=== PATIENT | male | born 1960 | race Caucasian/White ===

== ENCOUNTER → 2023-06-10 09:07 | Outpatient (REF) | payer OTHER, SELFPAY | LOC: HWRAD 09:07 | PROVIDERS: ATTENDING PHYSICIAN Specialist; FAMILY PHYSICIAN Family Medicine | DX: N20.0 Calculus of kidney (principal) | CPT/HCPCS: 74018 ==

== ENCOUNTER 2023-08-18 11:58 | Emergency (ER) | payer SELFPAY ==
[2023-08-18 12:12] VITALS: BP 173/101
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
[2023-08-18 13:16] VITALS: BP 159/79
== END 2023-08-18 13:22 | disposition home or self-care (01) ==
LOC: EMR 11:58
PROVIDERS: EMERGENCY PHYSICIAN Emergency Medicine; FAMILY PHYSICIAN Family Medicine
DX: M54.50 Low back pain, unspecified (principal); V49.40XA Driver injured in collision with unspecified motor vehicles in traffic accident, initial encounter; I10 Essential (primary) hypertension; E78.00 Pure hypercholesterolemia, unspecified; E11.9 Type 2 diabetes mellitus without complications; Z87.442 Personal history of urinary calculi
CPT/HCPCS: 99283; 72110

== ENCOUNTER 2023-09-12 06:13 | Day surgery (SDC) | payer OTHER, MEDICARE, SELFPAY ==
[2023-09-04 06:40] VITALS: BMI 41.0
[2023-09-04 09:00] LABS: Hematocrit 49.6 % (39.0-52.0); Hemoglobin 16.8 g/dL (13.0-18.0); Mean Corp Hgb Conc. 33.9 g/dL (33.0-37.0); Mean Corpuscular Hgb 28.5 pg (27.0-31.0); Mean Corpuscular Volume 84.1 fL (80.0-94.0); Mean Platelet Volume 9.6 fL (7.4-10.4); Platelet Count 223 10^3/uL (130-400); Red Cell Dist. Width 13.6 % (11.5-14.5); Urine Albumin Trace (Neg - Trace); Urine Bilirubin Negative (Negative); Urine Character Clear (Clear); Urine Color Yellow; Urine Glucose Negative (Negative); Urine Ketone Negative (Negative); Urine Leukocyte Negative (Negative); Urine Nitrite Negative (Negative); Urine Occult Blood Negative (Negative); Urine Specific Gravity 1.015 (<1.030); Urine Urobilinogen Negative (Neg - 1+); White Blood Cell Count 6.1 10^3/uL (4.8-10.8)
[2023-09-04 09:13] LABS: INR 0.97; PT 12.7 Sec (11.4-14.6)
[2023-09-04 09:14] LABS: APTT 29.9 Sec (23.4-35.0)
[2023-09-04 09:23] LABS: Blood Urea Nitrogen 22 mg/dl (9-20); Calcium 9.2 mg/dl (8.4-10.2); Carbon Dioxide 28 mmol/L (22-30); Chloride 104 mmol/L (98-107); Estimated Creatinine Clearance 101 ml/min; Glucose 108 mg/dl (70-99); Potassium 4.6 mmol/L (3.5-5.1); Sodium 141 mmol/L (135-145); eGFR > 60.00
[2023-09-12] VITALS (9 sets, daily range): BP systolic 121–149; BP diastolic 76–90; BMI 41.0
[2023-09-12] MEDS: NORMOSOL-R 1000 IV (09:06)
[2023-09-12 09:09] LABS: Glucose - Point of Care 124 mg/dl (70-99)
[2023-09-12 10:51] LABS: Glucose - Point of Care 106 mg/dl (70-99)
== END 2023-09-12 12:12 | disposition home or self-care (01) ==
LOC: SDS 06:13
PROVIDERS: ATTENDING PHYSICIAN Specialist; FAMILY PHYSICIAN Family Medicine
DX: N20.0 Calculus of kidney (principal)
CPT/HCPCS: 52356; 36415; 74018; 76000; 80048; 81003; 82365; 82962; 85027; 85610; 85730; 93005; A4300; C1894; C2617

== ENCOUNTER → 2023-11-26 13:42 | Outpatient (REF) | payer OTHER, SELFPAY | LOC: HWRCS 13:42 | PROVIDERS: ATTENDING PHYSICIAN Physician Assistant Medical | DX: R07.89 Other chest pain (principal) | CPT/HCPCS: 93306 ==

== ENCOUNTER → 2023-12-06 07:30 | Outpatient (REF) | payer OTHER, SELFPAY | LOC: RCS 07:30 | PROVIDERS: ATTENDING PHYSICIAN Physician Assistant Medical | DX: R07.89 Other chest pain (principal); R06.09 Other forms of dyspnea; R42 Dizziness and giddiness; I10 Essential (primary) hypertension | CPT/HCPCS: 93017 ==

== ENCOUNTER 2024-10-03 05:00 | Inpatient (IN) | payer OTHER, SELFPAY ==
[2024-10-03 00:36] VITALS: BP 195/101
--- NOTE | 2024-10-03 01:02 | ED.GENMED ---
History of Present Illness
<Oracio Mora MD, Resident - Last Filed: 10/03/24 03:26>
General
Chief Complaint: Flank Pain
Source: patient
Exam Limitations: none
Time Seen by Provider: 10/03/24 00:54
History of Present Illness
History of Present Illness:
This is a 64-year-old male presented with right-sided flank pain. He has known past medical history of hypertension on amlodipine, diabetes on glipizide, hypercholesteremia, history of multiple renal stones; follows with Dr. Aceves, had right
ureteroscopy, laser lithotripsy of renal calculi, basket extraction largest fragment, right double-J stent placement on 09/12/2023.
Reports that pain is 8/10, started around 10 PM he tried to sleep however, pain increased in intensity which led to his visit to the emergency department. Denies any other symptoms including chest pain, trouble breathing, fever or chills. Denies
any recent changes in the medical history.
Past History
<Oracio Mora MD, Resident - Last Filed: 10/03/24 03:26>
Past History
ED Past Medical History: HTN, Hypercholesterolemia, NIDDM and Other (History of diverticulitis, history of kidney stones with stent)
ED Past Surgical History: Bowel resection (Removal of bowel for diverticulitis), Orthopedic and Urological (stents)
Social History
Tobacco: Non-smoker
Alcohol: Occasional
Drug: None
Personal:
Living: with family
Employment: Employed
Family History
Family History: Other (18-year-old daughter has had kidney stones)
Review of Systems
<Oracio Mora MD, Resident - Last Filed: 10/03/24 03:26>
Review of Systems
Allergies reviewed?: Yes
Constitutional: Reports no symptoms
EENT: Reports no symptoms
Respiratory: Reports no symptoms
Cardiac: Reports no symptoms
ABD/GI: Reports other (Right flank pain radiating to right groin)
: Reports no symptoms
Musculoskeletal: Reports no symptoms
Skin: Reports no symptoms
Neurological: Reports no symptoms
Endocrine: Reports no symptoms
Hematologic/Lymphatic: Reports no symptoms
Psychiatric: Reports no symptoms
Phy Exam
<Oracio Mora MD, Resident - Last Filed: 10/03/24 03:26>
General Physical Exam
General Presentation: mild distress
General age: appears stated age
General Skin: warm and dry
General Habitus: normal
General Mental: alert
General Hydration: appears well hydrated
Pulmonary Exam
Pulmonary Exam: no respiratory distress and chest non tender
Gastrointestinal Exam
Gastrointestinal Exam: non tender, soft, no organomegaly and other (no buising, no wounds)
Genitourinary Exam Male
Exam Male: no CVAT, no discharge, normal external genitalia, normal testicular exam, no testicular swelling and no testicular tenderness
Skin Exam
Skin Exam: normal color, warm/dry and no rash
Psychiatric Exam
Psychiatric Exam: normal mood/affect
Course
<Oracio Mora MD, Resident - Last Filed: 10/03/24 03:26>
Orders/Labs/Results
Orders:
Orders
10/03/24 01:00
CMP [Comprehensive Metabolic Panel] Urgent
Complete Blood Count/With Diff Urgent
Urinalysis Reflex To Culture Urgent
Date Specimen was Collected: 10/03/24
Time Specimen was Collected: 00:47
Urine Microscopic Reflex Cult Urgent
Urine Culture Urgent
GÓMEZ Source: U
Specimen Description:
Date Specimen was Collected: 10/03/24
Time Specimen was Collected: 00:47
10/03/24 01:18
Ketorolac [Toradol] 15 mg IV NOW STA
10/03/24 01:21
CT Abd/pel Without Iv Or Oral Urgent
Comment:
Reason For Exam: Flank pain. h/o renal stones
10/03/24 01:24
Ondansetron Injectable [Zofran] 4 mg IV NOW STA
10/03/24 01:53
HYDROmorphone [Dilaudid] 0.5 mg IV NOW STA
10/03/24 04:03
Admit/Transfer Patient As Directed
Co-Sign Provider:
Level of Care: Inpatient admission
Assign to:: Medical/Surgical
Physician / Group: Connor
Diagnosis: Ureterolithiasis
Reason for Hospitalization: Ureterolithiasis
Expected length of stay greater than two midnights?: Yes
ELOS- Estimated Length of Stay in days: 2
I certify the patient meets the requirements for IP care: Yes
PRN Pain Medication Management As Directed
May give lesser potent ordered pain med per pt: Yes
preference::
Protocol:: Medication orders for pain may be administered in a
manner that supports deferring to patient preference
when the pt is:
- Requesting an ordered lesser potent pain medication.
Least to most potent pain medications are defined
as: acetaminophen < NSAID < tramadol < opioids
(morphine, oxycodone, hydromorphone).
- Requesting a lesser dose of the same medication IF
ORDERED.
- Requesting a less intrusive route of administration
if both routes are prescribed by the provider (PO <
IV).
10/03/24 04:04
Code Status As Directed
Resuscitation Status: Full Code
Abnormal Lab Results
10/03/24
01:00
RBC 6.16 H 10^6/uL
(4.70-6.10)
Abs Immat Gran (auto) 0.1 H 10^3/uL
(0-0.05)
Absolute Neuts (auto) 7.0 H 10^3/uL
(1.4-6.5)
Absolute Monos (auto) 0.8 H 10^3/uL
(0.1-0.6)
Neutrophils % 75.4 H %
(42.2-75.2)
Lymphocytes % 13.2 L %
(20.5-51.1)
BUN 24 H mg/dl
(9-20)
Glucose 211 H mg/dl
(70-99)
Ur Occult Blood Reflex 4+ A
(Negative)
Urine Bacteria (Reflex) Many A
(Negative)
Urine Albumin (Reflex) 3+ A
(Neg - Trace)
10/03/24 01:00
10/03/24 01:00
Vital Signs
Initial and Last Documented VS:
Initial Vital Signs
Temp Pulse Resp BP Pulse Ox
98.4 F 86 16 195/101 96
10/03/24 00:36 10/03/24 00:36 10/03/24 00:36 10/03/24 00:36 10/03/24 00:36
Last Documented Vital Signs
Temp Pulse Resp BP Pulse Ox
98.4 F 85 16 127/80 95
10/03/24 00:36 10/03/24 03:53 10/03/24 03:53 10/03/24 03:53 10/03/24 03:53
<Ganesh Tejeda, DO - Last Filed: 10/03/24 04:07>
Orders/Labs/Results
Orders:
Orders
10/03/24 01:00
CMP [Comprehensive Metabolic Panel] Urgent
Complete Blood Count/With Diff Urgent
Urinalysis Reflex To Culture Urgent
Date Specimen was Collected: 10/03/24
Time Specimen was Collected: 00:47
Urine Microscopic Reflex Cult Urgent
Urine Culture Urgent
GÓMEZ Source: U
Specimen Description:
Date Specimen was Collected: 10/03/24
Time Specimen was Collected: 00:47
10/03/24 01:18
Ketorolac [Toradol] 15 mg IV NOW STA
10/03/24 01:21
CT Abd/pel Without Iv Or Oral Urgent
Comment:
Reason For Exam: Flank pain. h/o renal stones
10/03/24 01:24
Ondansetron Injectable [Zofran] 4 mg IV NOW STA
10/03/24 01:53
HYDROmorphone [Dilaudid] 0.5 mg IV NOW STA
10/03/24 04:03
Admit/Transfer Patient As Directed
Co-Sign Provider:
Level of Care: Inpatient admission
Assign to:: Medical/Surgical
Physician / Group: Connor
Diagnosis: Ureterolithiasis
Reason for Hospitalization: Ureterolithiasis
Expected length of stay greater than two midnights?: Yes
ELOS- Estimated Length of Stay in days: 2
I certify the patient meets the requirements for IP care: Yes
PRN Pain Medication Management As Directed
May give lesser potent ordered pain med per pt: Yes
preference::
Protocol:: Medication orders for pain may be administered in a
manner that supports deferring to patient preference
when the pt is:
- Requesting an ordered lesser potent pain medication.
Least to most potent pain medications are defined
as: acetaminophen < NSAID < tramadol < opioids
(morphine, oxycodone, hydromorphone).
- Requesting a lesser dose of the same medication IF
ORDERED.
- Requesting a less intrusive route of administration
if both routes are prescribed by the provider (PO <
IV).
10/03/24 04:04
Code Status As Directed
Resuscitation Status: Full Code
Abnormal Lab Results
10/03/24
01:00
RBC 6.16 H 10^6/uL
(4.70-6.10)
Abs Immat Gran (auto) 0.1 H 10^3/uL
(0-0.05)
Absolute Neuts (auto) 7.0 H 10^3/uL
(1.4-6.5)
Absolute Monos (auto) 0.8 H 10^3/uL
(0.1-0.6)
Neutrophils % 75.4 H %
(42.2-75.2)
Lymphocytes % 13.2 L %
(20.5-51.1)
BUN 24 H mg/dl
(9-20)
Glucose 211 H mg/dl
(70-99)
Ur Occult Blood Reflex 4+ A
(Negative)
Urine Bacteria (Reflex) Many A
(Negative)
Urine Albumin (Reflex) 3+ A
(Neg - Trace)
10/03/24 01:00
10/03/24 01:00
Vital Signs
Initial and Last Documented VS:
Initial Vital Signs
Temp Pulse Resp BP Pulse Ox
98.4 F 86 16 195/101 96
10/03/24 00:36 10/03/24 00:36 10/03/24 00:36 10/03/24 00:36 10/03/24 00:36
Last Documented Vital Signs
Temp Pulse Resp BP Pulse Ox
98.4 F 85 16 127/80 95
10/03/24 00:36 10/03/24 03:53 10/03/24 03:53 10/03/24 03:53 10/03/24 03:53
<Oracio Mora MD, Resident - Last Filed: 10/03/24 03:26>
MDM/Problems Addressed
Differential Diagnosis Includes:
Renal calculi vs UTI vs less likely pyelonephritis vs less likely biliary vs less likely diverticulitis vs less likely pancreatitis
MDM/Problems Addressed:
will get cbc, cmp, UA
Toradol for pain, zofran for nausea.
will check CT abd/pel w/o contrast.
update 1:54 patient continues to have some pain radiating towards testicles; will give 0.5mg dilaudid.
Update: Preliminary radiology report showed approximately 10 stones seen within the distal right ureter, largest of which measures 7 mm at the right UVJ, resulting in mild right hydroureter. Additional obstructing right nephrolithiasis. Normal
bowel obstruction. Normal gallbladder.
Will reach out to med on-call urologist for further recommendations.
update: Urology recommended admission to hospitalist, n.p.o., IV antibiotic.
<Oracio Mora MD, Resident - Last Filed: 10/03/24 03:26>
*Pulse Oximetry
SaO2: 96
Oxygen Mode of Delivery: Room air
Patient hypoxic: no
*Critical Care Note
Total Time (30-74mins, 75-104mins- exclusive of procedures): Not Applicable
ED Attending Note
<Oracio Mora MD, Resident - Last Filed: 10/03/24 03:26>
-
Portions of this chart may have been created with voice recognition software.� Occasional wrong word or��sound alike� substitutions may have occurred due to the inherent limitations of voice recognition software.
<Ganesh Tejeda, DO - Last Filed: 10/03/24 04:07>
ED Attending Note
Patient seen and examined by attending physician: Yes
I performed a history and physical exam of patient and discussed management with resident, I reviewed resident's note and agree with documented findings and plan of care.: Yes
ED Attending Note:
I have reviewed and agree with history and treatment plan by Oracio Mora MD. My exam revealed
Physical Exam
General: no apparent distress, not acutely ill
Neck: supple. no meningeal signs. normal posterior pharynx
Heart: s1/s2 regular rate and rhythm, no murmur. equal radial
pulses.
HEENT: Pupils equal round reactive to light, EOMI
Lungs: no acute respiratory distress. clear bilaterally
Abdomen: normal bowel sounds. not tender. no CVAT
Neuro: alert and oriented. no focal neurological deficits cranial nerves II through XII intact
Skin: no rash
Psychiatric: well kept. interactive and cooperative
Extremities: no edema. no calf tenderness. negative homans. good distal pulses
64-year-old male with right flank pain likely kidney stone. Multiple stones in right ureter, including 7 mm stone obstructing. Discussed with Dr. Aceves, admit to hospitalist. N.p.o.
Discharge Plan
Departure
Patient Disposition: Admit
Date of Disposition: 10/03/24
Time of Disposition: 03:21
Admit to: Med/Surg
Presentation/result/management discussed w/ accepting MD/DO: Hospitalist
Condition: Fair
Discharge Problem:
Renal calculus, right, Right distal ureteral calculus
Instructions: Renal Colic (DC), Flank Pain (DC), BLOOD PRESSURE
Prescriptions:
No Action
simvastatin 20 MG tablet
20 mg PO QPM
glipizide 5 mg Tablet
5 mg PO DAILY
amlodipine 2.5 mg tablet
5 mg PO QPM
Referrals:
UNKNOWN - PT DOES,NOT KNOW [Family Provider]
Interventions
Interventions:
*Risk Screen - Suicide Last Done: 10/03/24 00:36
*General Assessment Last Done: 10/03/24 00:36
*Neglect/Abuse Screening Last Done: 10/03/24 00:36
*ED- Fall Risk Assessment Last Done: 10/03/24 00:36
*ED COVID-19 Vaccine History Last Done: 10/03/24 00:36
YV-Xecmnb-Ctjybnkfvr Assessment Last Done: 10/03/24 01:11
ED-Male Genitourinary Assessment Last Done: 10/03/24 01:11
Discharge Date and Time
Print Language: BAHAMIAN
[2024-10-03 01:08] LABS: Hematocrit 51.3 % (39.0-52.0); Hemoglobin 17.3 g/dL (13.0-18.0); Mean Corp Hgb Conc. 33.7 g/dL (33.0-37.0); Mean Corpuscular Volume 83.3 fL (80.0-94.0); Nucleated Red Blood Cells % 0 % (-); Platelet Count 211 10^3/uL (130-400); Red Cell Dist. Width 13.2 % (11.5-14.5)
[2024-10-03 01:10] VITALS: BP 166/86; BMI 41.8
[2024-10-03] MEDS: TORADOL 15 MG IV (01:26)
[2024-10-03] MEDS: ZOFRAN 4 MG IV (01:28)
[2024-10-03 01:31] LABS: ALT (SGPT) 31 U/L (0-50); AST (SGOT) 30 U/L (17-59); Albumin 4.5 g/dl (3.5-5.0); Alkaline Phosphatase 97 U/L (38-126); Blood Urea Nitrogen 24 mg/dl (9-20); Calcium 9.4 mg/dl (8.4-10.2); Carbon Dioxide 23 mmol/L (22-30); Chloride 106 mmol/L (98-107); Estimated Creatinine Clearance 85 ml/min; Glucose 211 mg/dl (70-99); Potassium 4.6 mmol/L (3.5-5.1); Sodium 139 mmol/L (135-145); Total Protein 7.2 g/dl (6.3-8.2); eGFR > 60.00
[2024-10-03 01:34] LABS: Urine Character Slightly Cloudy (Clear)
[2024-10-03 01:53] VITALS: BP 151/92
[2024-10-03] MEDS: DILAUDID 0.5 MG IV (01:57)
[2024-10-03 02:14] LABS: Urine Squamous Cell >30 /LPF (Few)
[2024-10-03 03:53] VITALS: BP 127/80
--- NOTE | 2024-10-03 04:06 | HPS.HSE ---
Family Physician
-
Family Physician: NOT KNOW UNKNOWN - PT DOES
Chief Complaint
-
Flank Pain
History of Present Illness
Patient is a 64y M with PMH significant for hypertension, DM-II and recurrent nephrolithiasis who presents to ED complaining of R flank pain that started this evening around 10PM. Patient has a long history of kidney stones with cysto / stent
required on 3 prior occasions. he has had some mild renal colic symptoms for the past week or so and passed a stone at home on Saturday. He was feeling well afterwards until sudden onset of severe pain this evening. He reports pain in the R
flank with radiation into the groin / testicles. No fevers / chills. Pos nausea but no emesis.
Medical History
Past Medical History
Past Medical History: Reports Other
Additional Past Medical History:
Hypertension
DM-II
Nephrolithiasis
Obesity
Diverticular Disease
Past Surgical History: Reports Other
Additional Past Surgical History:
Sigmoid Colectomy (Tics)
Cysto / Stent x 3
L TKA
Social History
Tobacco: Non-smoker
Alcohol: None
Drug: None
Family History
Family History: Other (Father: CAD)
Allergies / Home Medications
Allergies reflects when Allergies were last updated in [employer].
Home Medications with original date entered in [employer]
Allergy/Medication List:
Patient cannot recall his current medications.
If medication reconciliation has not been performed, why?: Medication List N/A
Review of Systems
-
History Source: Patient
A 12 point ROS was completed and negative except as noted: Yes
Constitutional: Denies Fever or Chills
Respiratory: Denies Cough or Trouble Breathing
Cardiac: Denies Chest Pain or Palpitations
Abdomen/GI: Reports Nausea; Denies Abdominal Pain, Vomiting or Diarrhea
: Reports Flank Pain; Denies Dysuria or Frequency
Musculoskeletal: Denies Joint Pain or Edema
Neurological: Denies Dizzy or Headache
Physical Exam
Vital Signs
Vital Signs
Temp Pulse Resp BP Pulse Ox
98.4 F 85 16 127/80 95
10/03/24 00:36 10/03/24 03:53 10/03/24 03:53 10/03/24 03:53 10/03/24 03:53
Physical Exam
General: Other (64y M in no acute distress at present.)
HEENT: Moist mucous membranes, PERRLA and Other (Thick neck.)
Respiratory: Clear; No Wheezes, Rales or Rhonchi
Cardiac: S1/S2 and Regular Rhythm; No Murmur
GI: Other (Obses, pos R sided tenderness without rebound / guarding. Pos BS.)
Genito-urinary: Other (Pos R CVAT.)
Musculoskeletal: No Edema
Neuro: AO x 3
Laboratory Results
-
10/03/24 01:00
10/03/24 01:00
Laboratory Results
Total Bilirubin 0.7 mg/dl (0.2-1.3) 10/03/24 01:00
AST 30 U/L (17-59) 10/03/24 01:00
ALT 31 U/L (0-50) 10/03/24 01:00
Alkaline Phosphatase 97 U/L (38-126) 10/03/24 01:00
Impression/Plan
-
A/P: Patient is a 64y M with PMH significant for HTN, DM-II and kidney stones who presents to ED complaining of R flank pain.
Right Ureterolithiasis
Mild R Hydronephrosis
- Admit for further evaluation and treatment.
- CT done in the ED shows 10 stones in the R ureter - the largest 7mm at the UVJ.
- NPO, IVFs, pain control.
- Empiric abx for now - though UA not suggestive of infection and no fever, leukocytosis, etc.
- Urology consulted and likely for OR / cysto / stent in AM.
- Tamsulosin, strain urine in the meantime.
Benign Hypertension
- Patient cannot recall his current medications.
- Needs formal med rec in AM and then resume usual meds as appropriate.
DM-II
- Stable. Hold PO meds acutely.
- Follow glucose and cover with SSI as needed.
- Update A1C.
Morbid Obesity due to excess calories
- Affects all aspects of care.
- Encourage healthy diet and increased exercise with goal of weight loss.
DVT Prophylaxis: SCDs
Code Status: Full
[2024-10-03] MEDS: NSS 1000 IV (05:17)
[2024-10-03 06:41] VITALS: BP 153/75
--- NOTE | 2024-10-03 09:03 | W.DCSUMMARY ---
Discharge Summary
Discharge Data
Date of Admission: 10/03/24
Date of Discharge: 10/03/24
-
Pending Results: No
Hospital Course
Discharge diagnosis:
Right ureterolithiasis with mild right hydronephrosis
Essential hypertension
Type 2 diabetes
Obesity due to excess calories
Right kidney lesion
Hepatic steatosis
CT abdomen and pelvis:
There are numerous (8-10) stones within the distal ureter extending to the right ureterovesicular junction measuring up to approximately 6 mm. There is associated mild right-sided hydronephrosis.
There is a 1.7 cm mildly hyperdense lesion along the inferior pole of the right kidney which has increased in size from prior and for which neoplasm cannot be excluded. Recommend dedicated MRI abdomen for further evaluation.
Hepatic steatosis.
In accordance with Act 112, known as the Patient Test Results Information Act, a letter will be sent to the patient which notifies the patient that a significant abnormality may exist. The letter will be sent within approximately 20 days of the
date the results were sent to the ordering health care practitioner.
Hospital course:
64-year-old male with a past medical history of obesity, hypertension, diabetes, and kidney stones who presented to the ER with right flank pain. CT of the abdomen and pelvis shows 10 stones in the right ureter with mild right hydronephrosis. He
was treated with IV fluids, and pain control. Patient's urine was strained.
Patient's CT of the abdomen and pelvis also shows a right kidney lesion. He needs dedicated MRI of the abdomen outpatient for further evaluation.
Patient passed all 10 kidney stones in the ER. He is discharged home from the ER. He needs to follow-up with his primary care doctor in 1 week, and his usual urologist in the office as needed.
Disposition: Home self-care
Discharge planning: Required 31-minute
Discharge Plan
-
Patient Disposition: Home (Routine Discharge)
Discharge Diagnosis/Procedures: Ureterolithiasis, hypertension, diabetes, obesity, right kidney lesion
Condition: Good
Diet: Low Fat, Low Cholesterol and Diabetic, Carb Controlled
Activity Restrictions/Additional Instructions:
You have a right kidney lesion. You need a dedicated MRI of the abdomen outpatient for further evaluation.
You can get a prescription from your primary care provider. Please follow-up with your primary care provider in 1 week.
Referrals:
UNKNOWN - PT DOES,NOT KNOW [Family Provider]
Prescriptions:
Continued
simvastatin 20 MG tablet
20 mg PO QPM
glipizide 5 mg Tablet
5 mg PO DAILY
amlodipine 2.5 mg tablet
5 mg PO QPM
Discharge Orders:
Discharge Patient (As Directed); Ordered 10/03/24
Ordered By: Alberto Ying
Discharge Date and Time
Print Language: BENGALI
[2024-10-03 09:13] VITALS: BP 150/70
== END 2024-10-04 11:25 | disposition home or self-care (01) | DRG 694 ==
LOC: ED 05:00
PROVIDERS: ADMITTING PHYSICIAN Hospitalist; ATTENDING PHYSICIAN Family Medicine; EMERGENCY PHYSICIAN Emergency Medicine
DX: N13.2 Hydronephrosis with renal and ureteral calculous obstruction (principal); Z68.41 Body mass index [BMI] 40.0-44.9, adult; I10 Essential (primary) hypertension; E11.9 Type 2 diabetes mellitus without complications; E66.01 Morbid (severe) obesity due to excess calories
CPT/HCPCS: 74176; 80053; 81003; 81015; 85025; 87086; 96374; 96375; 99284